=== PATIENT | female | born 1960 | race Caucasian/White ===

== ENCOUNTER → 2016-12-08 | Outpatient (CLI) | payer BC, OTHER ==
[~2016-12-08] MED LIST: ABAT250V SC; ASCO500T8 PO; BIOT10TA PO; CHOL200074 PO; DIGO125T PO; FURO-93 PO; FURO20TA3 PO; HYDR-3245 PO; IRON PO; LEVO100T5 PO; LEVO88TA4 PO; LIOT5TAB3 PO; MACI10TA PO; MAGN400T7 PO; METH2.5T PO; METO2.5T PO; MULT-6 PO; OMEG-120 PO; OMEP40CA6 PO; POTA20TA6 PO; PREDNISONE; SULF500T36 PO; TADA20TA33 PO; TREP10VI SC; ZINC50TA2 PO
[2016-12-08 16:47] LABS: BLOOD UREA NITROGEN 10 mg/dL (7-18)
[2016-12-08 16:50] LABS: ASPARTATE AMINO TRANSFERASE 16 U/L (15-37)
== END | disposition home or self-care (01) ==
LOC: STAR 15:27
PROVIDERS: ATTEND Specialist
DX: Z01.818 Encounter for other preprocedural examination (principal); R94.31 Abnormal electrocardiogram [ECG] [EKG]; K21.9 Gastro-esophageal reflux disease without esophagitis; I27.20 Pulmonary hypertension, unspecified; E03.9 Hypothyroidism, unspecified; M19.90 Unspecified osteoarthritis, unspecified site; F41.9 Anxiety disorder, unspecified; Z86.010 Personal history of colon polyps
CPT/HCPCS: 36415; 80053; 93005

== ENCOUNTER 2017-07-27 08:37 | Day surgery (SDC) | payer OTHER ==
[2017-07-27] MEDS ORDERED: TOCI162D SC (09:10)
[2017-07-27] MEDS ORDERED: ALPR0.25 PO (09:10)
[2017-07-27] MEDS ORDERED: DIPHENHYDRAMINE 50 MG/ML, 1ML IVPush ONE (09:30)
[2017-07-27] MEDS ORDERED: DIPHENHYDRAMINE 50 MG/ML, 1ML ONE (09:45)
[2017-07-27] MEDS ORDERED: FENTANYL PF 100 MCG/2ML ONE (10:28)
[2017-07-27] MEDS ORDERED: MIDAZOLAM 1 MG/ML, 5ML ONE (10:28)
[2017-07-27] MEDS ORDERED: LIDOCAINE 2%, 2ML ONE (10:29)
== END 2017-07-27 14:30 | disposition home or self-care (01) ==
LOC: CACL 08:37
PROVIDERS: ATTEND Internal Medicine Cardiovascular Disease
DX: I27.20 Pulmonary hypertension, unspecified (principal); F41.9 Anxiety disorder, unspecified; E03.9 Hypothyroidism, unspecified; I11.0 Hypertensive heart disease with heart failure; I50.20 Unspecified systolic (congestive) heart failure; G47.33 Obstructive sleep apnea (adult) (pediatric); M06.9 Rheumatoid arthritis, unspecified; F12.10 Cannabis abuse, uncomplicated; Z72.89 Other problems related to lifestyle; Z79.899 Other long term (current) drug therapy; Z88.8 Allergy status to other drugs, medicaments and biological substances
CPT/HCPCS: 93451; 99156; C1769; C1894; J1200; J2250; J3010; J3490